=== PATIENT | male | born 1950 | race African-American/Black ===

== ENCOUNTER 2017-11-21 04:44 | Emergency (ER) | payer OTHER ==
[2017-11-21 05:28] LABS: ADD MAN DIFF? NO
[2017-11-21 05:30] LABS: BASO # 0.1 x10^3/uL (0.0-0.2); BASO % 1 % (0-3); EOS # 0.5 x10^3/uL (0.0-0.7); EOS % 6 % (0-3); HEMATOCRIT 40.5 % (39.0-53.0); HEMOGLOBIN 12.9 g/dL (13.0-17.5); LYMPH # 2.2 x10^3/uL (1.0-4.8); LYMPH % 26 % (24-48); MEAN CORPUSCULAR HEMOGLOBIN 23 pg (25-35); MEAN CORPUSCULAR HGB CONC 32 g/dL (31-37); MEAN CORPUSCULAR VOLUME 73 fL (79-100); MONO # 0.9 x10^3/uL (0.0-1.1); MONO % 10 % (0-9); NEUT # 4.8 x10^3uL (1.8-7.7); NEUT % 57 % (31-73); PLATELET COUNT 128 x10^3/uL (140-400); RED BLOOD COUNT 5.52 x10^6/uL (4.30-5.70); RED CELL DISTRIBUTION WIDTH 15.2 % (11.5-14.5); WHITE BLOOD COUNT 8.4 x10^3/uL (4.0-11.0)
[2017-11-21 05:37] LABS: ANION GAP 9 (6-14); BLOOD UREA NITROGEN 21 mg/dL (8-26); BUN/CREATININE RATIO 23 (6-20); CALCIUM 9.4 mg/dL (8.5-10.1); CARBON DIOXIDE 27 mmol/L (21-32); CHLORIDE 107 mmol/L (98-107); CREATININE 0.9 mg/dL (0.7-1.3); GFR 101.5; GLUCOSE 120 mg/dL (70-99); POTASSIUM 3.9 mmol/L (3.5-5.1); SODIUM 143 mmol/L (136-145)
[2017-11-21 05:43] LABS: ALBUMIN 3.7 g/dL (3.4-5.0); ALK PHOS 53 U/L (46-116); ALT (SGPT) 45 U/L (16-63); AST (SGOT) 32 U/L (15-37); LIPASE 123 U/L (73-393); TOTAL BILIRUBIN 0.5 mg/dL (0.2-1.0); TOTAL PROTEIN 7.3 g/dL (6.4-8.2)
[2017-11-21] MEDS: ACETAMINOPHEN 500 MG TABLET PO (05:50)
[2017-11-21] MEDS: IV NORMAL SALINE 1000ML BAG 1,000 ML IV (05:50)
[2017-11-21 06:14] LABS: BILIRUBIN,URINE NEGATIVE (NEG); CLARITY,URINE CLEAR; COLOR,URINE YELLOW; GLUCOSE,URINE NEGATIVE (NEG); NITRITE,URINE NEGATIVE (NEG); PROTEIN,URINE NEGATIVE (NEG-TRACE)
[2017-11-21 06:21] LABS: RBC,URINE OCC /HPF (0-2); SQUAMOUS EPITHELIAL CELL,UR OCC /LPF
[2017-11-21 06:22] LABS: BACTERIA,URINE 0 /HPF (0-FEW)
[2017-11-21] MEDS: IOHEXOL 300 MG/ML 100ML VIAL. IV (06:30)
[2017-11-21] MEDS ORDERED: CONTRAST GIVEN. MC (06:30)
== END 2017-11-21 07:28 | disposition home or self-care (01) ==
LOC: ER 04:44
DX: M54.2 Cervicalgia (principal); M54.5 Low back pain; M54.6 Pain in thoracic spine; E11.9 Type 2 diabetes mellitus without complications; E78.00 Pure hypercholesterolemia, unspecified; I10 Essential (primary) hypertension
CPT/HCPCS: 36415; 72072; 72125; 74177; 80053; 81001; 83690; 85025; 99285-25; J7030; Q9967